=== PATIENT | female | born 1970 | race Hispanic/Latino ===

== ENCOUNTER 2024-03-19 09:38 | Day surgery (SDC) | payer BC ==
[2024-03-19] VITALS (12 sets, daily range): BP systolic 91–117; BP diastolic 44–69; PULSE 49–64; RESP 15–17; TEMP 97.4–97.7
[~2024-03-19] VITALS: Ht 160 cm; Wt 86.6 kg
[~2024-03-19 09:38] MED LIST: CHOL200013 PO; ESTR1PAT TD; LOSA25TA41 PO; METO-391 PO; PROG100C11 PO
[2024-03-19] MEDS: 0.9%NACL 1000ML 1,000 ML IV ONE (10:53)
[2024-03-19] MEDS ORDERED: IOHEXOL-350 50ML VIAL IV ONE (11:33)
[2024-03-19] MEDS ORDERED: LIDOCAINE PF 100MG/5ML (2%) SYRINGE 5ML ONE (12:27)
[2024-03-19] MEDS ORDERED: proPOFol 10 MG/ML 20ML VIAL IV ONE (12:27)
[2024-03-19] MEDS: INDOMETHACIN 100 MG SUPP.RECT RC ONE (12:45)
[2024-03-19] MEDS ORDERED: GLUCAGON 1MG KIT 1 MG ML ONE (12:55)
[2024-03-19] MEDS ORDERED: ondanSETRON 4MG INJ ONE (13:09)
[2024-03-19] MEDS ORDERED: FENTanyl CITRate PF 50 MCG/1 ML 2ML VIAL ONE (13:09)
== END 2024-03-19 14:18 | disposition home or self-care (01) ==
LOC: ENDO 09:38 → DAH 09:38 → ENDO 14:18
PROVIDERS: ATTEND Internal Medicine Gastroenterology
DX: K80.50 Calculus of bile duct without cholangitis or cholecystitis without obstruction (principal); I10 Essential (primary) hypertension; N20.0 Calculus of kidney; Z90.49 Acquired absence of other specified parts of digestive tract; Z90.710 Acquired absence of both cervix and uterus; Z96.89 Presence of other specified functional implants; Z79.899 Other long term (current) drug therapy
CPT/HCPCS: 43274; 82948 ×2; 74330; 43264; J3010; J7030; J1610; J2003; J2704; J2405; Q9967; A4620; C1769 ×2; A4215 ×2; A4223; A4657 ×2; A7002; A4222; A4221; A4663; C1875; A4606; C1773; 43275; 43277; 74328; J3490

== ENCOUNTER → 2024-04-15 | Outpatient (CLI) | payer BC ==
--- NOTE | 2024-04-15 16:16 | HMCIMG ---
ABD 1VW HISTORY: Bile duct stone COMPARISON: None FINDINGS: A frontal projection of the abdomen was obtained. A nonspecific bowel gas pattern is seen. Fecal material is seen in the colon. Findings are suggestive of constipation. IMPRESSION: 1. A nonspecific bowel gas pattern is seen.
== END | disposition home or self-care (01) ==
LOC: RAH 15:21
PROVIDERS: ATTEND Internal Medicine
DX: K80.50 Calculus of bile duct without cholangitis or cholecystitis without obstruction (principal)
CPT/HCPCS: 74018